=== PATIENT | female | born 1980 | race Caucasian/White ===

== ENCOUNTER 2018-07-03 10:52 | Emergency (ER) | payer BC, OTHER ==
[~2018-07-03] VITALS: Ht 154.9 cm; Wt 63.5 kg
[2018-07-03 11:06] VITALS: BP 147/72
--- NOTE | 2018-07-03 11:12 | NUR ---
Patient ambulated to bed 1. RN evaluating patient at bedside.
--- NOTE | 2018-07-03 11:15 | NUR ---
C/O NAUSEA DYSURIA, FREQUENCY, BURNING, SUPRAPUBIC TENDERNESS X 3 DAYS, AND ALSO SUSPECTS SHE IS . LMP 05/2018, DENIES VOMITING, FEVER, DIARRHEA. ABDOMEN IS SOFT, FLAT AND TENDER TO PALPATION IN BILAT LOWER QUADRANTS. SKIN IS PINK/WARM/DRY; AAOX4 WITH EVEN AND STEADY GAIT;VSS; PATIENT POSITIONED FOR COMFORT; HOB ELEVATED; BEDRAILS UP X1; BED DOWN. ER MD MADE AWARE OF PT STATUS.
--- NOTE | 2018-07-03 11:53 | NUR ---
Dr. Horton evaluating patient at bedside.
--- NOTE | 2018-07-03 11:55 | NUR ---
PELVIC EXAM PERFORMED AT BEDSIDE BY DR. AVITIA. RASHEEDA RN AND CECIL RN PRESENT IN ROOM. GENITALIA CULTURE COLLECTED AND SENT TO LAB.
[2018-07-03 12:00] LABS: APPEARANCE,URINE HAZY (CLEAR); BILIRUBIN,URINE 2+ (NEGATIVE); BLOOD, URINE 3+ (NEGATIVE); COLOR,URINE ORANGE (YELLOW); LEUKOCYTE ESTERASE ,URINE 1+ (NEGATIVE); NITRITE, URINE POSITIVE (NEGATIVE); UGLUCOSE 1+ (NEGATIVE)
--- NOTE | 2018-07-03 12:10 | NUR ---
LAB AT BEDSIDE
[2018-07-03 12:15] LABS: BASOPHILS # (AUTO) 0.1 K/uL (0.00-0.22); BASOPHILS % (AUTO) 0.7 % (0.0-2.0); EOSINOPHILS # (AUTO) 0.2 K/uL (0-0.4); EOSINOPHILS % (AUTO) 1.7 % (0.0-4.0); HEMATOCRIT 41.4 % (36-48); HEMOGLOBIN 13.8 g/dL (12.0-16.0); LYMPHOCYTES # (AUTO) 2.3 K/uL (2.5-16.5); MEAN CORPUSCULAR HEMOGLOBIN 32 pg (27-31); MEAN CORPUSCULAR HGB CONC 33 g/dL (33-37); MEAN CORPUSCULAR VOLUME 96.5 fL (80-94); MONOCYTES # (AUTO) 1.1 K/uL (0.8-1.0); MONOCYTES % (AUTO) 7.5 % (1.7-9.3); NEUTROPHILS # (AUTO) 10.9 K/uL (1.8-7.7); NEUTROPHILS % (AUTO) 74.1 % (42.2-75.2); PLATELET COUNT (AUTO) 336 K/uL (140-450); RED BLOOD CELL COUNT(AUTO) 4.29 MIL/uL (4.20-5.40); RED CELL DISTRIBUTION WIDTH 13.1 % (11.6-13.7); WHITE BLOOD COUNT (AUTO) 14.7 K/uL (4.8-10.8)
[2018-07-03 12:22] LABS: RBC,URINE 50-80 /HPF (0-5); WBC,URINE 20-60 /HPF (0-5)
[2018-07-03 12:36] LABS: ANION GAP 10.9 (8-16); CARBON DIOXIDE 26.1 mmol/L (21-32); CREATININE 0.6 mg/dL (0.6-1.3)
[2018-07-03 12:38] LABS: ALBUMIN 3.3 g/dL (3.4-5.0); TOTAL BILIRUBIN 0.2 mg/dL (0.0-1.0)
[2018-07-03 14:14] VITALS: BP 143/71
[2018-07-05 07:00] LABS: CHLAMYDIA TRACHOMATIS AMP DNA Negative (Negative)
--- NOTE | 2018-07-06 13:10 | NUR ---
URINE CULTURE RECEIVED. H&P REVIEWED AND PT SENT HOME WITH KEFLEX 500MG PO BID X7 DAYS. DR. MITCHELL SHOWED CULTURE, STATES NO NEW ORDERS NEEDED.
== END 2018-07-03 14:10 | disposition home or self-care (01) ==
LOC: MED 10:52
DX: O23.41 Unspecified infection of urinary tract in pregnancy, first trimester (principal); Z3A.08 8 weeks gestation of pregnancy
CPT/HCPCS: 36415; 76801; 80053; 81001; 81025; 83690; 84702; 85025; 87086; 87186; 87210; 87491; 99284; Q0092

== ENCOUNTER 2018-11-19 13:30 | Observation (INO) | payer BC, OTHER ==
[~2018-11-19] VITALS: Ht 154.9 cm; Wt 67.6 kg
[2018-11-19] MEDS ORDERED: AMPH15TA PO (15:13)
[2018-11-19] MEDS ORDERED: PREN-380 PO (15:13)
[2018-11-19 16:13] LABS: APPEARANCE,URINE CLEAR (CLEAR); BILIRUBIN,URINE NEGATIVE (NEGATIVE); BLOOD, URINE NEGATIVE (NEGATIVE); COLOR,URINE YELLOW (YELLOW); LEUKOCYTE ESTERASE ,URINE NEGATIVE (NEGATIVE); NITRITE, URINE NEGATIVE (NEGATIVE); UGLUCOSE NEGATIVE (NEGATIVE)
[2018-11-19 16:13] LABS: BASOPHILS # (AUTO) 0.1 K/uL (0.00-0.22); BASOPHILS % (AUTO) 0.4 % (0.0-2.0); EOSINOPHILS # (AUTO) 0.1 K/uL (0-0.4); EOSINOPHILS % (AUTO) 1.2 % (0.0-4.0); HEMATOCRIT 38.2 % (36-48); HEMOGLOBIN 12.7 g/dL (12.0-16.0); LYMPHOCYTES # (AUTO) 2.4 K/uL (2.5-16.5); MEAN CORPUSCULAR HEMOGLOBIN 31 pg (27-31); MEAN CORPUSCULAR HGB CONC 33 g/dL (33-37); MEAN CORPUSCULAR VOLUME 92.4 fL (80-94); MONOCYTES # (AUTO) 0.8 K/uL (0.8-1.0); MONOCYTES % (AUTO) 6.8 % (1.7-9.3); NEUTROPHILS # (AUTO) 8.7 K/uL (1.8-7.7); NEUTROPHILS % (AUTO) 71.6 % (42.2-75.2); PLATELET COUNT (AUTO) 261 K/uL (140-450); RED BLOOD CELL COUNT(AUTO) 4.14 MIL/uL (4.20-5.40); RED CELL DISTRIBUTION WIDTH 13.5 % (11.6-13.7); WHITE BLOOD COUNT (AUTO) 12.1 K/uL (4.8-10.8)
[2018-11-19 16:41] LABS: ALBUMIN 2.5 g/dL (3.4-5.0); ANION GAP 11.9 (8-16); ASPARTATE AMINOTRANSFERASE 21 U/L (15-37); CARBON DIOXIDE 24.7 mmol/L (21-32); CHLORIDE 103 mmol/L (98-107); CREATININE 0.5 mg/dL (0.6-1.3); GFR ARICAN-AMERICAN 176 mL/min (>90); GLUCOSE 84 mg/dL (74-106); POTASSIUM 3.6 mmol/L (3.5-5.1); SODIUM SERUM 136 mmol/L (136-145); TOTAL BILIRUBIN 0.2 mg/dL (0.0-1.0); UREA NITROGEN, BLOOD 7 mg/dL (7-18)
== END 2018-11-19 19:25 | disposition home or self-care (01) ==
LOC: MLD 13:30
PROVIDERS: ADMIT Obstetrics & Gynecology; ATTEND Obstetrics & Gynecology
DX: O62.9 Abnormality of forces of labor, unspecified (principal); Z3A.27 27 weeks gestation of pregnancy
CPT/HCPCS: 36415; 76817; 80053; 81003; 82731; 85025; G0378; Q0092

== ENCOUNTER 2019-01-02 12:02 | Inpatient (IN) | payer BC, OTHER ==
[~2019-01-02] VITALS: Ht 154.9 cm; Wt 68.5 kg
[~2019-01-02 12:02] MED LIST: AMPH15TA PO; PREN-380 PO
[2019-01-02] MEDS ORDERED: LACTATED RINGERS 1,000 ML IV SCH (12:50)
[2019-01-02] MEDS ORDERED: BETAMETH ACET/BETAMETH NA PH 30 MG/5 ML VIAL IM SCH (13:00)
[2019-01-02] MEDS ORDERED: BETAMETH ACET/BETAMETH NA PH 30 MG/5 ML VIAL IM ONE (13:16)
[2019-01-02] MEDS: MAG SULF 2000 MG/WATER PREMIX 100 ML IV SCH ×2 (13:21→14:42)
[2019-01-02] MEDS ORDERED: NITR50CA1 PO (13:58)
[2019-01-02 14:19] LABS: BASOPHILS % (AUTO) 0.3 % (0.0-2.0); EOSINOPHILS # (AUTO) 0.1 K/uL (0-0.4); HEMATOCRIT 37.5 % (36-48); HEMOGLOBIN 12.5 g/dL (12.0-16.0); LYMPHOCYTES # (AUTO) 2.5 K/uL (2.5-16.5); LYMPHOCYTES % (AUTO) 23.9 % (20.5-51.1); MEAN CORPUSCULAR HEMOGLOBIN 31 pg (27-31); MEAN CORPUSCULAR HGB CONC 33 g/dL (33-37); MONOCYTES # (AUTO) 0.6 K/uL (0.8-1.0); MONOCYTES % (AUTO) 6.1 % (1.7-9.3); NEUTROPHILS # (AUTO) 7.1 K/uL (1.8-7.7); NEUTROPHILS % (AUTO) 68.7 % (42.2-75.2); PLATELET COUNT (AUTO) 255 K/uL (140-450); RED BLOOD CELL COUNT(AUTO) 4.03 MIL/uL (4.20-5.40); RED CELL DISTRIBUTION WIDTH 13.4 % (11.6-13.7); WHITE BLOOD COUNT (AUTO) 10.3 K/uL (4.8-10.8)
[2019-01-02] MEDS ORDERED: MAG SULF 20 GM/H2O PREMIX DRIP 500 ML IV ONE (14:59)
[2019-01-02 15:02] LABS: ALBUMIN 2.3 g/dL (3.4-5.0); ANION GAP 12.9 (8-16); CARBON DIOXIDE 23.9 mmol/L (21-32); CREATININE 0.7 mg/dL (0.6-1.3); POTASSIUM 3.8 mmol/L (3.5-5.1); TOTAL BILIRUBIN 0.2 mg/dL (0.0-1.0)
[2019-01-02] MEDS: MAG SULF 20 GM/H2O PREMIX DRIP 500 ML IV SCH (15:04)
[2019-01-02 16:07] LABS: URIC ACID 4.7 mg/dL (2.6-7.2)
[2019-01-02 17:31] LABS: APPEARANCE,URINE CLEAR (CLEAR); BILIRUBIN,URINE NEGATIVE (NEGATIVE); BLOOD, URINE NEGATIVE (NEGATIVE); COLOR,URINE YELLOW (YELLOW); LEUKOCYTE ESTERASE ,URINE NEGATIVE (NEGATIVE); NITRITE, URINE NEGATIVE (NEGATIVE); UGLUCOSE NEGATIVE (NEGATIVE)
[2019-01-03] MEDS ORDERED: MAG SULF 20 GM/H2O PREMIX DRIP 500 ML IV ONE (01:12)
[2019-01-03] MEDS: MAG SULF 20 GM/H2O PREMIX DRIP 500 ML IV SCH (01:34)
--- NOTE | 2019-01-03 08:48 | NUR ---
PATIENT HAS BEEN SCREENED AND CATEGORIZED LOW NUTRITION RISK. PATIENT WILL BE SEEN WITHIN 7 DAYS OF ADMISSION. 01/09/[address]
[2019-01-03] MEDS: FAMOTIDINE 20 MG TAB PO SCH ×2 (09:44→22:54)
[2019-01-03] MEDS ORDERED: MAGNESIUM SULFATE IV SCH (12:45)
[2019-01-03] MEDS ORDERED: NACL 0.9% IV SCH (12:45)
[2019-01-03] MEDS ORDERED: BETAMETH ACET/BETAMETH NA PH 30 MG/5 ML VIAL IM SCH (13:13)
[2019-01-03] MEDS ORDERED: BETAMETH ACET/BETAMETH NA PH 30 MG/5 ML VIAL IM ONE (13:26)
[2019-01-03] MEDS ORDERED: hydrOXYzine HCL 25 MG TAB PO PRN (15:05)
[2019-01-03] MEDS ORDERED: LABETALOL 100 MG/20 ML VIAL ONE ×2 (15:08→15:09)
[2019-01-03] MEDS ORDERED: LABETALOL 100 MG/20 ML VIAL IVP SCH (15:15)
[2019-01-03] MEDS: hydrOXYzine PAMOATE 25 MG CAP PO PRN ×2 (15:23→22:53)
[2019-01-03 15:54] VITALS: BP 137/75
[2019-01-03 20:59] LABS: URINE TOTAL PROTEIN 7.1 mg/dL (0-12)
[2019-01-03] MEDS ORDERED: FAMOTIDINE 20 MG TAB ONE (22:38)
== END 2019-01-04 00:10 | disposition short-term general hospital (02) | DRG 833 ==
LOC: MLD 12:02
PROVIDERS: ADMIT Obstetrics & Gynecology; ATTEND Obstetrics & Gynecology
DX: O14.13 Severe pre-eclampsia, third trimester (principal); Z3A.33 33 weeks gestation of pregnancy; Z91.19 Patient's noncompliance with other medical treatment and regimen; O26.893 Other specified pregnancy related conditions, third trimester; F90.9 Attention-deficit hyperactivity disorder, unspecified type
CPT/HCPCS: 36415; 51702; 59025; 76805; 76817; 80053; 81003; 83735; 84156; 84550; 85025; 85384; J0702; J3475; J3490; J7030; J7120; Q0092; Q0177

== ENCOUNTER 2021-07-22 21:13 | Emergency (ER) | payer BC, OTHER ==
[~2021-07-22] VITALS: Ht 154.9 cm; Wt 70.9 kg
[~2021-07-22 21:13] MED LIST changes: +NITR50CA1 PO
[2021-07-22 21:27] VITALS: BP 137/88
--- NOTE | 2021-07-22 21:32 | NUR ---
PT SENT TO LOBBY.
--- NOTE | 2021-07-22 21:52 | NUR ---
NOTIFIED BY ADMIT CLERK HORVATH THAT PT LEFT FACILITY. PATIENT LEFT WITHOUT BEING SEEN BY DR. KUMAR. NO FURTHER CARE PROVIDED FOR PATIENT.
== END 2021-07-22 21:52 | disposition left against medical advice (07) ==
LOC: MED 21:13
DX: R10.9 Unspecified abdominal pain (principal); R19.7 Diarrhea, unspecified; K92.1 Melena; Z53.21 Procedure and treatment not carried out due to patient leaving prior to being seen by health care provider